=== PATIENT | female | born 1995 | race Caucasian/White ===

== ENCOUNTER 2022-01-11 21:01 | Emergency (ER) | payer MEDICAID, SELFPAY ==
--- NOTE | ~2022-01-11 | US_ITS ---
EXAMINATION: US OBSTETRICAL ULTRASOUND CLINICAL INFORMATION: Cramping. Vaginal spotting. Question miscarriage. COMPARISON: None. LMP: 11/14/2021. Gestational age by maternal dates is 8 weeks 3 days. Estimated date of delivery by maternal dates is 08/21/2022. TECHNIQUE: Ultrasound of the maternal pelvis is performed using transabdominal and transvaginal transducers. Transvaginal imaging is performed due to inadequate visualization transabdominally. M-mode Doppler is also performed. FINDINGS: There is a single intrauterine gestational sac with visible yolk sac and possible pole. There is no cardiac activity identified. Small subchorionic hematoma measures 0.3 cm.. CRL (crown rump length): 0.18 cm (5 weeks 3 days +/- 4 days). SYDNEY (estimated date of delivery): 09/11/2022 +/- 4 days. MATERNAL ADNEXA: The right maternal ovary measures 2.7 x 1.3 x 1.2 cm. The left maternal ovary measures 3 x 1.9 x 1.8 cm. 1.2 cm corpus luteum There is no significant maternal adnexal mass. No maternal pelvic ascites. US/US pelvic ovarian doppler IMPRESSION: Intrauterine gestational sac with a pole. There is no heart rate detected, though it is possible that this is secondary to early stage of . Gestational age by ultrasound is 5 weeks 3 days. That said, this does not match expected dates by last menstrual period. Close follow-up recommended as demise is a possibility.
--- NOTE | ~2022-01-11 | US_ITS ---
EXAMINATION: US OBSTETRICAL ULTRASOUND CLINICAL INFORMATION: Cramping. Vaginal spotting. Question miscarriage. COMPARISON: None. LMP: 11/14/2021. Gestational age by maternal dates is 8 weeks 3 days. Estimated date of delivery by maternal dates is 08/21/2022. TECHNIQUE: Ultrasound of the maternal pelvis is performed using transabdominal and transvaginal transducers. Transvaginal imaging is performed due to inadequate visualization transabdominally. M-mode Doppler is also performed. FINDINGS: There is a single intrauterine gestational sac with visible yolk sac and possible pole. There is no cardiac activity identified. Small subchorionic hematoma measures 0.3 cm.. CRL (crown rump length): 0.18 cm (5 weeks 3 days +/- 4 days). SYDNEY (estimated date of delivery): 09/11/2022 +/- 4 days. MATERNAL ADNEXA: The right maternal ovary measures 2.7 x 1.3 x 1.2 cm. The left maternal ovary measures 3 x 1.9 x 1.8 cm. 1.2 cm corpus luteum There is no significant maternal adnexal mass. No maternal pelvic ascites. US/US OB pelvic and transvaginal IMPRESSION: Intrauterine gestational sac with a pole. There is no heart rate detected, though it is possible that this is secondary to early stage of . Gestational age by ultrasound is 5 weeks 3 days. That said, this does not match expected dates by last menstrual period. Close follow-up recommended as demise is a possibility.
[2022-01-11 21:07] VITALS: BP 141/85; PULSE 83; RESP 16; TEMP 36.6; O2SAT 99; BMI 26.4
[2022-01-11 21:24] LABS: MANUAL DIFF FLAG NO
[2022-01-11 21:27] LABS: Basophils Percent Auto 0.4 % (0-2); Eosinophils Absolute Auto 0.2 X10*3/uL (0.0-0.4); Eosinophils Percent Auto 2.4 % (0-4); Hematocrit 37.2 % (37.0-47.0); Hemoglobin 12.3 g/dl (12.0-16.0); Imm Gran Abs Auto 0.02 X10*3/uL (0.00-0.03); Imm Gran Pct Auto 0.2 % (0.0-0.4); Lymphocytes Absolute Auto 2.1 X10*3/uL (1.2-4.9); Lymphocytes Percent Auto 25.3 % (20-40); Mean Corpuscular HGB Conc 33.1 g/dl (31.0-35.0); Mean Corpuscular Hemoglobin 28.9 pg (27.0-33.0); Mean Corpuscular Volume 87.3 fL (80.0-98.0); Mean Platelet Volume 8.4 fL (9.4-12.3); Monocytes Absolute Auto 0.6 X10*3/uL (0.1-1.2); Monocytes Percent Auto 7.5 % (2-11); Neutrophils Absolute Auto 5.4 x10*3/uL (2.0-8.3); Neutrophils Percent Auto 64.2 % (45-73); Platelet Count 267 X10*3/uL (160-400); Red Blood Count 4.26 X10*6/uL (4.20-5.50); Red Cell Distribution Width 13.7 % (11.0-16.0); White Blood Count 8.5 X10*3/uL (4.8-10.8)
[2022-01-11 21:43] LABS: Alanine Aminotransferase 11 U/L (0-31); Albumin Level 4.3 g/dL (3.5-5.0); Alkaline Phosphatase 61 U/L (39-117); Anion Gap 15 (12-20); Aspartate Amino Transferase 16 U/L (5-31); Bilirubin Total 1.1 mg/dL (0.0-1.0); Blood Urea Nitrogen 14 mg/dL (9-16); Calcium 9.2 mg/dL (8.4-10.2); Carbon Dioxide 20 mmol/L (22-29); Chloride 106 mmol/L (96-108); Creatinine Clr Calc Pharmacy 98.3; Estimated Glomerular Filt Rate > 60; Glucose Fasting 91 mg/dL (60-99); Potassium 3.6 mmol/L (3.3-5.1); Sodium 137 mmol/L (135-145); Total Protein 7.3 g/dL (6.5-8.0)
[2022-01-11 21:49] LABS: HCG Quantitative 9890 mIU/mL
[2022-01-11 22:51] VITALS: BP 123/79; PULSE 78; RESP 24; TEMP 36.8; O2SAT 98
--- NOTE | 2022-01-11 23:01 | ED_ITS ---
HPI - General Adult General Chief complaint: Abdominal Pain Stated complaint: ? having a miscarraige Time Seen by Provider: 01/11/22 22:16 Source: patient Mode of arrival: ambulatory Limitations: no limitations History of Present Illness HPI narrative: 26 year old female A1 presents to the ED w/ bilateral abd pain/ pelvic pain X 2 weeks worsening w/ vaginal bleeding that has been worsening over the past few days. Patient reports 2 weeks ago she passed large clots in the toilet and then this past friday ( 3 days ago) she went to her OBGYN due to spotting, they told her she is likely having an incomplete . They advised her to go to ED at that time, however choose not to, they started her on atbx Flagyl for BV, she tells me she decided to come in today because her vaginal spotting has now turned into vaginal bleeding she has a hard time telling me how many pads she is going through however she does explain she is not soaking through pads she is to straining them frequently. She is describing a lower abdominal pain bilaterally and cramping, reports it is worse on the right. She denies any chances of STDs. Denies fevers, chills, chest pain, shortness of breath, nausea, vomiting, weakness, near syncope, vision changes, dizziness, headache. LMP 11/15/2021 Related Data Allergies Allergy/AdvReac Type Severity Reaction Status Date / Time amoxicillin [AMOXICILLIN] Allergy Intermediate FEVER Unverified 11/04/19 19:36 Review of Systems Review of Systems: Constitutional : No Weight loss, No Fever, No Chills, No Fatigue, No Malaise ENT/Mouth : No sore throat, No Rhinorrhea Eyes: No Eye Pain, No Swelling, No Redness Cardiovascular : No Chest Pain, No SOB, No Dyspnea on Exertion, No Orthopnea, No Edema, No Palpitations Respiratory : No Cough, No Sputum, No Wheezing Gastrointestinal : No Nausea, No Vomiting, No Diarrhea, No Constipation, + abdominal Pain, No Hematochezia, No Melena Genitourinary : No Dysuria, No Urinary Frequency, No Hematuria, + vaginal bleeding Musculoskeletal : No joint pain, No Myalgias, No Joint Swelling Skin : No Skin Lesions, No rash Neuro : No Weakness, No Numbness, No Dizziness, No Headache Psych : No Anxiety/Panic, No Depression All other systems reviewed and are negative Yes all other systems are reviewed and are negative [facility] Past Medical History Attestation statement: The following information was validated with the patient. Source: old records reviewed and nursing notes reviewed Social History Social History Advance Directives: No Advance Directives Information Provided: No Physical Exam ED Vital Signs: Vital Signs - 24 hr 01/11/22 21:07 01/11/22 22:51 01/12/22 02:07 Temperature 97.8 F 98.2 F Pulse Rate 83 78 90 Respiratory Rate 16 24 H 18 Blood Pressure 141/85 H 123/79 105/74 Pulse Oximetry 99 98 97 Oxygen Delivery Method Room Air Room Air Room Air BMI result Body Mass Index 26.4 vss Appearance: Alert.? Oriented X3.? No acute distress.? Head: Normocephalic, atraumatic, no step-offs or deformities Eyes: Pupils equal, round and reactive to light.? CVS: Normal heart rate and rhythm.? Pulses normal.? Respiratory: No respiratory distress.? Breath sounds normal.? Abdomen: Soft and nontender.? Skin: Skin warm and dry.? Normal skin color.? Normal skin turgor.? Extremities: No lower extremity edema.? No calf ttp. 5/5 strength to bilateral upper and lower extremities Sensative exam: closed cervical os, mild discomfort to bilateral adnexa. Dark red blood in vaginal canal. Patient w/ discomfort on speculum exam. Normal female external genatalia Neuro: Oriented X 3.? No motor deficit.? No sensory deficit. CN 2-12 intact Course Reevaluation(s) Reevaluation #1: CBC within normal limits. Chemistry with no acute electrolyte abnormalities requiring intervention. Coags with no acute findings. HCG at 21:20 9890, repeat at 11:45 12,931. Time: 01:17 Reevaluation #2: Ultrasound showing intrauterine gestational sac with pole however no heart rate. Concerns for possible threatened . Over patient's course in the emergency department she has only changed her pad once, slight drop in H&H. Bleeding slowing down per patient. Spoke to Dr. Kesha MUELLER who recommends patient returning with new or worsening sx, no need for Rhogam at this time as patient is O +. From ends repeat ultrasound within 11 days. Explained all this to patient, educated on worrisome signs and sympto ms and when to return. Advised to follow-up with OBGYN as soon as possible and PCP and return with new or worsening symptoms. Worrisome signs and symptoms outlined on discharge. Comfortable discharge Time: 01:58 Procedures Procedure Narrative Procedure Narrative: 2300 26 year old female presents with lower abdominal pain/pelvic pain x3 days worsening. Also reporting vaginal spotting. PE Plan- Medical Decision Making MDM Narrative Medical decision making narrative: 0000 26 year old female presents w/ vaginal bleeding, lower abd/pelvic painn worsening X3 days. Was recently told by GIS COORDINATOR she was having an incomplete . PE w/ closed cervical os, mild discomfort to bilateral adnexa. Dark red blood in vaginal canal. Patient w/ discomfort on speculum exam. Normal female external genatalia Concerns for threatened . Unlikely ectopic . Possible ruptured ovarian cyst. Patient does not appear toxic. Insert of acute abdomen or appendicitis, cholecystitis or pancreatitis. Plan at this time type and screen, pelvic ultrasound, INR, gonorrhea, chlamydia, Trichomonas, UA, BV. Will obtain ultrasound OB pelvic and transvaginal with ovarian pelvic with Doppler. Medical Records Medical records reviewed: Yes I reviewed the patient's medical records. Lab Data Lab results reviewed: Yes I reviewed the patient's lab results. Result diagrams: 01/12/22 01:48 01/11/22 23:45 Labs: Lab Results 01/11/22 01/11/22 01/11/22 Range/Units 21:20 21:20 23:45 WBC 8.5 (4.8-10.8) X10*3/uL RBC 4.26 (4.20-5.50) X10*6/uL Hgb 12.3 (12.0-16.0) g/dl Hct 37.2 (37.0-47.0) % MCV 87.3 (80.0-98.0) fL MCH 28.9 (27.0-33.0) pg MCHC 33.1 (31.0-35.0) g/dl RDW 13.7 (11.0-16.0) % Plt Count 267 (160-400) X10*3/uL MPV 8.4 L (9.4-12.3) fL Immature Gran % (Auto) 0.2 (0.0-0.4) % Neut % (Auto) 64.2 (45-73) % Lymph % (Auto) 25.3 (20-40) % Drew % (Auto) 7.5 (2-11) % Eos % (Auto) 2.4 (0-4) % Baso % (Auto) 0.4 (0-2) % Lymph # (Auto) 2.1 (1.2-4.9) X10*3/uL Drew # (Auto) 0.6 (0.1-1.2) X10*3/uL Eos # (Auto) 0.2 (0.0-0.4) X10*3/uL Baso # (Auto) 0.0 (0.0-0.2) X10*3/uL Abs Immat Gran (auto) 0.02 (0.00-0.03) X10*3/uL Absolute Neuts (auto) 5.4 (2.0-8.3) x10*3/uL Absolute Nucleated RBC 0.000 (0.0-0.012) X10*3/uL Nucleated RBC % (auto) 0.0 (0.0-0.2) /100WBC PT 13.5 H (10.0-13.1) SEC INR 1.2 H (0.9-1.1) Sodium 137 (135-145) mmol/L Potassium 3.6 (3.3-5.1) mmol/L Chloride 106 (96-108) mmol/L Carbon Dioxide 20 L (22-29) mmol/L Anion Gap 15 (12-20) BUN 14 (9-16) mg/dL Creatinine 0.74 (0.5-1.4) mg/dL Estim Creat Clear Calc 98.3 Estimated GFR > 60 Random Glucose (60-115) mg/dL Fasting Glucose 91 (60-99) mg/dL Calcium 9.2 (8.4-10.2) mg/dL Total Bilirubin 1.1 H (0.0-1.0) mg/dL AST 16 (5-31) U/L ALT 11 (0-31) U/L Alkaline Phosphatase 61 (39-117) U/L Total Protein 7.3 (6.5-8.0) g/dL Albumin 4.3 (3.5-5.0) g/dL Beta HCG, Quant 9890 mIU/mL Urine Color Urine Appearance Urine pH (5.0-9.0) Ur Specific [place] (1.005-1.025) Urine Protein (Neg-Trace) mg/dL Urine Glucose (UA) (Negative) mg/dL Urine Ketones (Negative) mg/dL Urine Blood (Negative) Urine Nitrite (Negative) Ur Leukocyte Esterase (Negative) Blood Type Antibody Screen 01/11/22 01/11/22 01/12/22 Range/Units 23:45 23:45 01:48 WBC (4.8-10.8) X10*3/uL RBC (4.20-5.50) X10*6/uL Hgb (12.0-16.0) g/dl Hct (37.0-47.0) % MCV (80.0-98.0) fL MCH (27.0-33.0) pg MCHC (31.0-35.0) g/dl RDW (11.0-16.0) % Plt Count (160-400) X10*3/uL MPV (9.4-12.3) fL Immature Gran % (Auto) (0.0-0.4) % Neut % (Auto) (45-73) % Lymph % (Auto) (20-40) % Drew % (Auto) (2-11) % Eos % (Auto) (0-4) % Baso % (Auto) (0-2) % Lymph # (Auto) (1.2-4.9) X10*3/uL Drew # (Auto) (0.1-1.2) X10*3/uL Eos # (Auto) (0.0-0.4) X10*3/uL Baso # (Auto) (0.0-0.2) X10*3/uL Abs Immat Gran (auto) (0.00-0.03) X10*3/uL Absolute Neuts (auto) (2.0-8.3) x10*3/uL Absolute Nucleated RBC (0.0-0.012) X10*3/uL Nucleated RBC % (auto) (0.0-0.2) /100WBC PT (10.0-13.1) SEC INR (0.9-1.1) Sodium 138 (135-145) mmol/L Potassium 3.8 (3.3-5.1) mmol/L Chloride 107 (96-108) mmol/L Carbon Dioxide 19 L (22-29) mmol/L Anion Gap 16 (12-20) BUN 12 (9-16) mg/dL Creatinine 0.74 (0.5-1.4) mg/dL Estim Creat Clear Calc 98.3 Estimated GFR > 60 Random Glucose 81 (60-115) mg/dL Fasting Glucose (60-99) mg/dL Calcium 9.2 (8.4-10.2) mg/dL Total Bilirubin 1.2 H (0.0-1.0) mg/dL AST 19 (5-31) U/L ALT 12 (0-31) U/L Alkaline Phosphatase 65 (39-117) U/L Total Protein 8.0 (6.5-8.0) g/dL Albumin 4.6 (3.5-5.0) g/dL Beta HCG, Quant 04778 mIU/mL Urine Color Yellow Urine Appearance Clear Urine pH 6.0 (5.0-9.0) Ur Specific [place] 1.010 (1.005-1.025) Urine Protein Negative (Neg-Trace) mg/dL Urine Glucose (UA) Negative (Negative) mg/dL Urine Ketones 15 (Negative) mg/dL Urine Blood Negative (Negative) Urine Nitrite Negative (Negative) Ur Leukocyte Esterase Negative (Negative) Blood Type O Positive Antibody Screen NEGATIVE 01/12/22 Range/Units 01:48 WBC 7.8 (4.8-10.8) X10*3/uL RBC 4.11 L (4.20-5.50) X10*6/uL Hgb 11.9 L (12.0-16.0) g/dl Hct 36.6 L (37.0-47.0) % MCV 89.1 (80.0-98.0) fL MCH 29.0 (27.0-33.0) pg MCHC 32.5 (31.0-35.0) g/dl RDW 13.6 (11.0-16.0) % Plt Count 260 (160-400) X10*3/uL MPV 8.6 L (9.4-12.3) fL Immature Gran % (Auto) 0.3 (0.0-0.4) % Neut % (Auto) 61.1 (45-73) % Lymph % (Auto) 28.1 (20-40) % Drew % (Auto) 7.9 (2-11) % Eos % (Auto) 2.2 (0-4) % Baso % (Auto) 0.4 (0-2) % Lymph # (Auto) 2.2 (1.2-4.9) X10*3/uL Drew # (Auto) 0.6 (0.1-1.2) X10*3/uL Eos # (Auto) 0.2 (0.0-0.4) X10*3/uL Baso # (Auto) 0.0 (0.0-0.2) X10*3/uL Abs Immat Gran (auto) 0.02 (0.00-0.03) X10*3/uL Absolute Neuts (auto) 4.8 (2.0-8.3) x10*3/uL Absolute Nucleated RBC 0.000 (0.0-0.012) X10*3/uL Nucleated RBC % (auto) 0.0 (0.0-0.2) /100WBC PT (10.0-13.1) SEC INR (0.9-1.1) Sodium (135-145) mmol/L Potassium (3.3-5.1) mmol/L Chloride (96-108) mmol/L Carbon Dioxide (22-29) mmol/L Anion Gap (12-20) BUN (9-16) mg/dL Creatinine (0.5-1.4) mg/dL Estim Creat Clear Calc Estimated GFR Random Glucose (60-115) mg/dL Fasting Glucose (60-99) mg/dL Calcium (8.4-10.2) mg/dL Total Bilirubin (0.0-1.0) mg/dL AST (5-31) U/L ALT (0-31) U/L Alkaline Phosphatase (39-117) U/L Total Protein (6.5-8.0) g/dL Albumin (3.5-5.0) g/dL Beta HCG, Quant mIU/mL Urine Color Urine Appearance Urine pH (5.0-9.0) Ur Specific [place] (1.005-1.025) Urine Protein (Neg-Trace) mg/dL Urine Glucose (UA) (Negative) mg/dL Urine Ketones (Negative) mg/dL Urine Blood (Negative) Urine Nitrite (Negative) Ur Leukocyte Esterase (Negative) Blood Type Antibody Screen Critical Care Time Critical Care Time Critical Care Time: Yes Total Critical Care Time: 35 Attestation: I attest to this time spent taking care of the patient, obtaining history, physical, reviewing labs, imaging, speaking to my attending, speaking to sp ecialist. Discharge Plan Discharge Clinical Impression: , threatened Patient Disposition: Home, Self-Care Instructions: Threatened Miscarriage (ED) Additional Instructions: Take your medications as prescribed. If you were prescribed antibiotics today, it is important that you take your medication to their entirety, do not skip any doses, do not finish them early. Follow-up with your primary care provider this week. Please follow-up with OBGYN as soon as possible preferably on Friday. Return to the emergency department with new or worsening symptoms. Such as fevers, chills, chest pain, shortness of breath, nausea, vomiting, dizziness, headache, vision changes, lethargy, worsening vaginal bleeding, abdominal pain. If bleeding or cramping worsens, or if your bleeding through more than 2 pads per hour you need to come in immediately. Should get a repeat ultrasound within 11 days. In case of emergency call 911 US/US OB pelvic and transvaginal IMPRESSION: Intrauterine gestational sac with a pole. There is no heart rate detected, though it is possible that this is secondary to early stage of . Gestational age by ultrasound is 5 weeks 3 days. That said, this does not match expected dates by last menstrual period. Close follow-up recommended as demise is a possibility. Referrals: Nery Araiza MD [Primary Care Provider] - 2 days Rohit Rebolledo MD [Physician] - 2 days
[2022-01-12 00:07] LABS: INTERNATIONAL NORM RATIO 1.2 (0.9-1.1); Prothrombin Time 13.5 SEC (10.0-13.1)
[2022-01-12 00:13] LABS: Alanine Aminotransferase 12 U/L (0-31); Albumin Level 4.6 g/dL (3.5-5.0); Alkaline Phosphatase 65 U/L (39-117); Anion Gap 16 (12-20); Aspartate Amino Transferase 19 U/L (5-31); Bilirubin Total 1.2 mg/dL (0.0-1.0); Blood Urea Nitrogen 12 mg/dL (9-16); Calcium 9.2 mg/dL (8.4-10.2); Carbon Dioxide 19 mmol/L (22-29); Chloride 107 mmol/L (96-108); Creatinine Clr Calc Pharmacy 98.3; Estimated Glomerular Filt Rate > 60; Glucose Random 81 mg/dL (60-115); Potassium 3.8 mmol/L (3.3-5.1); Sodium 138 mmol/L (135-145)
[2022-01-12 00:19] LABS: HCG Quantitative 12831 mIU/mL
[2022-01-12 02:05] LABS: MANUAL DIFF FLAG NO
[2022-01-12 02:07] VITALS: BP 105/74; PULSE 90; RESP 18; O2SAT 97
[2022-01-12 02:13] LABS: Appearance Urine Clear; Basophils Percent Auto 0.4 % (0-2); Color Urine Yellow; Eosinophils Absolute Auto 0.2 X10*3/uL (0.0-0.4); Eosinophils Percent Auto 2.2 % (0-4); Glucose Urine UA Negative (Negative); Hematocrit 36.6 % (37.0-47.0); Hemoglobin 11.9 g/dl (12.0-16.0); Imm Gran Abs Auto 0.02 X10*3/uL (0.00-0.03); Imm Gran Pct Auto 0.3 % (0.0-0.4); Leukocyte Esterase Urine Negative (Negative); Lymphocytes Absolute Auto 2.2 X10*3/uL (1.2-4.9); Lymphocytes Percent Auto 28.1 % (20-40); Mean Corpuscular HGB Conc 32.5 g/dl (31.0-35.0); Mean Corpuscular Volume 89.1 fL (80.0-98.0); Mean Platelet Volume 8.6 fL (9.4-12.3); Monocytes Absolute Auto 0.6 X10*3/uL (0.1-1.2); Monocytes Percent Auto 7.9 % (2-11); Neutrophils Absolute Auto 4.8 x10*3/uL (2.0-8.3); Neutrophils Percent Auto 61.1 % (45-73); Nitrite Urine Negative (Negative); Platelet Count 260 X10*3/uL (160-400); Red Blood Count 4.11 X10*6/uL (4.20-5.50); Red Cell Distribution Width 13.6 % (11.0-16.0); Urine Blood Negative (Negative); Urine Ketones 15 mg/dL (Negative); Urine Protein Negative (Neg-Trace); White Blood Count 7.8 X10*3/uL (4.8-10.8)
--- NOTE | 2022-01-12 02:31 | PM.GYNCN ---
HUSBANDRY TECHNICIAN - CN: HPI Data of Consult Consult date: 01/12/22 Primary Care Provider: Nery Araiza MD Consult Narrative Narrative: I was consulted on Ronna Lemon who is a 26 year old female 26 year old presenting to the ED with 2 week history of spotting and pelvic pain, which has gotten worse over the last few days. No other complaints. LMP 11/15/2021 making her by todate at 8 weeks and 2 days gestation. Rh positive. The patient changed 1 pad during 3.5 hours stay in the emergency room cc:: CC: OB [facility] Social History Social History Advance Directives: No Advance Directives Information Provided: No Meds Allergies Allergy/AdvReac Type Severity Reaction Status Date / Time amoxicillin [AMOXICILLIN] Allergy Intermediate FEVER Unverified 11/04/19 19:36 HUSBANDRY TECHNICIAN Physical Exam Vitals Vital signs: Temp Pulse Resp BP Pulse Ox O2 Del Method 98.2 F 90 18 105/74 97 01/11/22 22:51 01/12/22 02:07 01/12/22 02:07 01/12/22 02:07 01/12/22 02:07 01/12/22 02:07 BMI result Body Mass Index 26.4 Additional Comments: Physical exam reported by RON Good as the following: Abdominal exam is soft nontender Pelvic exam : closed cervical os, Dark red blood in vaginal canal. No active bleeding HUSBANDRY TECHNICIAN - Results Labs CBC & Chem 7: 01/12/22 01:48 01/11/22 23:45 Labs: Short CBC 01/11/22 01/12/22 Range/Units 21:20 01:48 WBC 8.5 7.8 (4.8-10.8) X10*3/uL Hgb 12.3 11.9 L (12.0-16.0) g/dl Hct 37.2 36.6 L (37.0-47.0) % Plt Count 267 260 (160-400) X10*3/uL BMP 01/11/22 01/11/22 21:20 23:45 Sodium 137 138 Potassium 3.6 3.8 Chloride 106 107 Carbon Dioxide 20 L 19 L BUN 14 12 Creatinine 0.74 0.74 Calcium 9.2 9.2 Liver Function 01/11/22 01/11/22 Range/Units 21:20 23:45 Total Bilirubin 1.1 H 1.2 H (0.0-1.0) mg/dL AST 16 19 (5-31) U/L ALT 11 12 (0-31) U/L Alkaline Phosphatase 61 65 (39-117) U/L Albumin 4.3 4.6 (3.5-5.0) g/dL Urine 01/12/22 Range/Units 01:48 Urine Color Yellow Urine Appearance Clear Urine pH 6.0 (5.0-9.0) Ur Specific [place] 1.010 (1.005-1.025) Urine Protein Negative (Neg-Trace) mg/dL Urine Glucose (UA) Negative (Negative) mg/dL Antibody Screen Antibody Screen NEGATIVE 01/11/22 23:45 Imaging US - abdomen: Radiologist's impression: ITS Impressions Doppler Study Ultrasound 01/12/22 01:45 IMPRESSION: Intrauterine gestational sac with a pole. There is no heart rate detected, though it is possible that this is secondary to early stage of . Gestational age by ultrasound is 5 weeks 3 days. That said, this does not match expected dates by last menstrual period. Close follow-up recommended as demise is a possibility. Pelvic/Transvag US 01/12/22 01:45 IMPRESSION: Intrauterine gestational sac with a pole. There is no heart rate detected, though it is possible that this is secondary to early stage of . Gestational age by ultrasound is 5 weeks 3 days. That said, this does not match expected dates by last menstrual period. Close follow-up recommended as demise is a possibility. Assessment and Plan (1) First trimester bleeding: Status: Acute Plan Recommended to RON Good the followin: GC/CT, BV panel Trichomonas to be collected Discussed the ultrasonographic criteria for missed , CRL of at least 7 mm with no heart rate, given her CRL of 18 mm with intrauterine gestational sac and yolk pole, there is a high likelihood of diagnosis of missed A/B, MSD was not reported on ultrasound report. Since the patient's bleeding is not heavy, there is no evidence of active bleeding on pelvic exam, and the patient changed 1 pad in 3.5+ hours in the emergency room, SAB warnings to be given to the patient, she is to come back to the emergency in case of persistence and /or worsening of vaginal bleeding/pelvic cramping Follow-up with her OBGYN in 48 hours. I spent a total of 20 minutes reviewing the chart, communicating to the emergency room provider and documenting in the medical record. This note was generated with a voice recognition program. Some errors may have been overlooked during the review of this note. Sometimes these errors may affect the content or meaning of a given sentence.
[2022-01-12 02:46] LABS: CT PCR NOT DETECTED (Not Detect.); NG PCR NOT DETECTED (Not Detect.)
[2022-01-12 11:20] LABS: BV Int Neg Control Negative (Negative); BV Int Pos Control Positive (Positive)
== END 2022-01-12 03:03 | disposition home or self-care (01) ==
PROVIDERS: Physician Assistant; Emergency Provider Internal Medicine; PCP Internal Medicine
DX: O20.9 Hemorrhage in early pregnancy, unspecified (principal); Z3A.01 Less than 8 weeks gestation of pregnancy
CPT/HCPCS: 36415; 76801; 76817; 80053; 81003; 84702; 85025; 85610; 86850; 86900; 86901; 87480; 87491; 87510; 87591; 87660; 93975; 99283; 99284

== ENCOUNTER 2023-05-20 15:23 | Emergency (ER) | payer MEDICAID, SELFPAY ==
--- NOTE | ~2023-05-20 | XR_ITS ---
EXAMINATION: XR LUMBOSACRAL SPINE CLINICAL INFORMATION: Lower back pain. COMPARISON: None available. TECHNIQUE: Three views of the lumbosacral spine. FINDINGS: Leftward curvature of the lumbar spine with apex at L3. No evidence of acute compression deformity or subluxation. Intervertebral disc heights are maintained. Age indeterminate defect in the right transverse process at the level of L1. Symmetric SI joints. No significant paraspinal soft tissue abnormality. XR/XR lumbar spine 2-3V IMPRESSION: 1. No acute compression deformity or subluxation. 2. Age indeterminate lucency in the right transverse process at the level of L1 that could be congenital or potentially artifactual secondary to overlying bowel gas. However, an underlying fracture cannot be excluded. Recommend correlation with point tenderness and if indicated further characterization with CT without IV contrast.
--- NOTE | 2023-05-20 16:07 | ED_ITS ---
HPI - Back Pain/Injury General Chief Complaint: Back Pain/Injury Stated Complaint: lwr back pain/hx scoliosis/gave 5mo ago Time Seen by Provider: 05/20/23 16:29 Source: patient and RN notes reviewed Mode of arrival: ambulatory Limitations: no limitations History of Present Illness HPI Narrative: This is a 27-year-old female who presents to the emergency department for evaluation of chronic back pain. Patient states that she has a history of scoliosis however reports over the last 5 months she has had worsening back pain ever since having her epidural. She states that during her epidural there is multiple complications, stating that they are unable to find the right space and after multiple attempts she was no longer able to get the epidural. She states that she is having severe mid back pain. She denies any fevers, chills, chest pain, shortness breast, abdominal pain, nausea, vomiting or diarrhea. No urinary retention or incontinence. No saddle anesthesia. Denies any lower extremity weakness. Denies any urinary symptoms, no urinary frequency, urgency, hematuria. She describes her back pain is sharp in nature and occasionally radiates down her back. Denies any other complaints or concerns at this time. MD elicited complaint: back pain Pertinent past history: prior back pain Onset (ago): month(s) Timing: progressively worsening Severity: moderate Similar Symptoms Previously: Yes Quality: sharp and stabbing Location: lumbar spine Radiation: none Exacerbating factors: none Relieving factors: none Associated symptoms: denies other symptoms Related Data Previous Rx's Medication Instructions Recorded acetaminophen 500 mg tablet 500 mg PO Q6H PRN pain #30 tabs 05/20/23 (Tylenol Extra Strength) ibuprofen 600 mg tablet 600 mg PO Q6H PRN pain #30 tabs 05/20/23 Allergies Allergy/AdvReac Type Severity Reaction Status Date / Time amoxicillin [AMOXICILLIN] Allergy Intermediate FEVER Verified 05/20/23 16:11 Review of Systems Review of Systems: Yes all other systems are reviewed and are negative Constitutional: Constitutional: Reports as per [facility] Past Medical History Attestation statement: The following information was validated with the patient. Social History Social History Advance Directives: No Advance Directives Information Provided: No Physical Exam Vital Signs: Vital Signs: Last Vital Signs Temp 98.6 F 05/20/23 18:44 Pulse 73 05/20/23 18:44 Resp 16 05/20/23 18:44 BP 149/105 H 05/20/23 16:08 Pulse Ox 97 05/20/23 18:44 O2 Del Method Room Air 05/20/23 18:44 BMI result Body Mass Index 28.5 Const: General: cooperative, comfortable and no acute distress Orientation/consciousness: patient oriented x3 Limitations: no limitations HEENT: Head: Yes normal to inspection, Yes normocephalic and Yes atraumatic Ears: hearing grossly normal bilaterally General nose exam: Normal external nose present Face and sinus: Yes normal facial exam Mouth: Normal oral and palatal mucosa present, oropharynx normal and moist mucous membranes Throat: Yes posterior oropharynx normal Eyes: General: appearance normal, both eyes and all related structures Eyelids: Yes eyelids normal Conjunctivae: conjunctivae normal Sclerae: sclerae normal Pupils: Equal, round and reactive pupils present EOM: EOMs intact bilaterally Neck: Neck: Yes normal visual inspection, Yes full ROM and Yes no lymphadenopathy Lymphatic: no lymphadenopathy noted Chest: Chest palpation & inspection: normal inspection of the chest Resp: Effort & Inspection: normal respiratory effort and able to speak in complete sentences Auscultation: clear to auscultation bilaterally, no crackles, no rales, no rhonchi and no wheezes Cardio: Rate: regular rate Rhythm: regular rhythm Heart sounds: S1 normal heart sound present and S2 normal heart sound present GI: Inspection: Yes normal to inspection Back/Spine/Pelvis: Other: Exquisite tenderness to the lumbar spine specifically at L1, no overlying erythema, edema, warmth, worsening pain with flexion and extension. No CVA tenderness. Strength 5/5 in lower extremities. Distal sensation circulation intact. Skin: General skin exam: no rashes or lesions noted Trauma: no lacerations or abrasions Wounds: no wounds Neuro: General: patient oriented x3 and moves all extremities Cranial nerves: Yes Equal, round and reactive pupils present Extrem: General: Yes normal to inspection Right upper extremity: normal to inspection Left upper extremity: normal to inspection Right lower extremity: normal to inspection Left lower extremity: normal to inspection Course Course Course Narrative: This is a Rapid Medical Examination (RME) in triage, full HPI, ROS, assessment and plan per primary provider in the Main ED. Ronna is a 27 year old female with history of scoliosis presenting today for evaluation of worsening back pain for 1 month. Pain is now unbearable and progressively worse over the past week. Has been waking up in the middle of the night crying due to the pain. Reports that she feels a hard spot in her back that is painful to touch, states it is where her scoliosis is most prominent. Has been taking tylenol as needed. Sharp pain starts in mid back and travels down to lower back. No following for scoliosis. Gave 5 months ago and was diagnosed with preeclampsia. Reports that they messed up the epidural 3 times , didn't realize the scoliosis was that bad . Reports that she hasn't had the pain since having a brace 14 years ago. Medical Decision Making Medical Decision Making MDM Narrative: This is a 27-year-old female presenting to the emergency department with complaints of ongoing chronic back pain. She has a history of scoliosis however states that since her epidural she had 5 months ago her back pain has worsened. . Differential diagnoses includes lumbago versus musculoskeletal spasm / strain versus sciatica. No back pain red flags on history or physical. Presentation not consistent with malignancy (lack of history of malignancy, lack of B symptoms), fracture (no trauma, no bony tenderness to palpation), cauda equina (no bowel or urinary incontinence/retention, no saddle anesthesia, no distal weakness), pyelonephritis (afebrile, no CVAT, no urinary symptoms). Given worsening back pain after epidural, ordered lumbar x-ray. Lumbar x-ray revealed lucency at L1. This is precisely where she is having her pain therefore unclear significance of this however advised patient to follow-up with neurosurgery as well as primary care physician to have MRI or any additional testing performed. She has no neurologic deficits therefore stat MRI is not warranted at this time. Patient given strict return precautions. She understands agrees with plan. Patient stable for discharge. Differential Diagnosis Differential Diagnoses: The differential diagnosis associated with the presentation includes Fracture, sciatica, scoliosis, acute on chronic back pain, see above for other details. Radiology Impression Discussion of test interpretation with radiology: I have reviewed the radiologist's reading. Radiologist Impression: XR/XR lumbar spine 2-3V IMPRESSION: 1. No acute compression deformity or subluxation. 2. Age indeterminate lucency in the right transverse process at the level of L1 that could be congenital or potentially artifactual secondary to overlying bowel gas. However, an underlying fracture cannot be excluded. Recommend correlation with point tenderness and if indicated further characterization with CT without IV contrast. Dictated By: Mayte Martinez External Record Review External record reviewed: Inpatient record, Office record, Outpatient record, Prior outpatient labs, Prior outpatient radiology, Primary care record and Outside ED record Discharge Plan Discharge Clinical Impression: Back pain Patient Disposition: Home, Self-Care Instructions: Acute Low Back Pain (ED), Back Pain (ED) Additional Instructions: You were seen in the emergency department due to back pain. Your x-ray is concerning for a possible L1 abnormality. You need to follow-up with your primary care physician. I am also giving your referral to our contract administration specialist. Please call tomorrow to make an appointment. Alternate between ibuprofen and Tylenol. If any new or worsening symptoms occur, including but not limited to numbness, tingling, weakness in her lower legs, urinary or bowel incontinence, please return for re-evaluation. Prescriptions: New ibuprofen 600 mg tablet 600 mg PO Q6H PRN (Reason: pain) Qty: 30 0RF acetaminophen [Tylenol Extra Strength] 500 mg tablet 500 mg PO Q6H PRN (Reason: pain) Qty: 30 0RF Referrals: Singh Renteria MD, PhD [Physician] - Discharge Date/Time: 05/20/23 18:45
[2023-05-20 16:08] VITALS: BP 149/105; PULSE 85; RESP 20; TEMP 37.4; O2SAT 100; BMI 28.5
[2023-05-20 18:44] VITALS: PULSE 73; RESP 16; TEMP 37; O2SAT 97
== END 2023-05-20 18:45 | disposition home or self-care (01) ==
PROVIDERS: Emergency Provider Emergency Medicine; PCP Internal Medicine
DX: M54.9 Dorsalgia, unspecified (principal); M41.9 Scoliosis, unspecified; Z88.0 Allergy status to penicillin
CPT/HCPCS: 72100; 99282; 99283

== ENCOUNTER 2023-05-30 14:18 | Outpatient (AMB) | payer MEDICAID, SELFPAY ==
--- NOTE | 2023-05-30 14:21 | A.SPINEOV_ITS ---
Intake Intake Visit Reasons: scoliosis Intake Note: Ms. 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 She has a pleasant 27-year-old female comes in today with a chief complaint of low back pain with radiation down toward her waistline. She reports a longstanding history of childhood scoliosis, which was somewhat corrected with bracing via [facility]. 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 Per her report, they attempted to place an epidural and failed multiple times. Ever since they attempted the epidural, she has had severe low back pain. And more recently the pain has got to the point where she has been in 9/10 pain throughout the day, and sought care in our emergency department. After ev aluation in the ED she was sent to our clinic for a follow-up. She has been taking Tylenol/ibuprofen in order to mitigate her pain symptoms, but has not been doing much else. She has been to physical therapy in the past during her due to some exacerbation of her back pains during the initial course of . PMH: Antiphospholipid blood clotting disorder. Not on any anticoagulation. Social hx: Patient does not smoke, reports no substance use. Medications: Tylenol, ibuprofen. Allergies: NKDA. Physical exam: The patient has 5/5 strength in her upper and lower extremities. She has no sensational deficits. Her reflexes are 2+ intact. She is able to ambulate well and rises from a seated position without difficulty. She elicits pain to direct palpation of the L1 region of her lumbar spine. She denies significant pain to direct palpation above or below this area. There is a notable levocoliosis in the lumbar spine, and dextroscoliosis in the thoracic spine. (-) Crowe's, (-) clonus. Imaging review: X-ray imaging shows levoscoliosis of the lumbar spine with the apex at L3. Disc height appears well maintained, however x-rays are over projected. 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 She identifies inciting incident of an attempted epidural placement during her delivery. She has been in essentially constant pain since then which has recently worsened. There has been some discussion of a potential fracture at the L1 level after both evaluation in the emergency department and radiological review of x-rays. The patient does present with pain to direct palpation of the vertebral body near this level, and therefore I will be sending her for a CT scan of the lumbar spine to definitively evaluate for a fracture in the lumbar spine. If the CT scan does not show a fracture, then I will be ordering her an MRI to evaluate for any potential nerve root impingement which may have occured as a result of her epidural placement. Thank you for allowing us to care for your patient. The total time spent with this visit with this patient was 45 minutes reviewing history, physical exam, MRI imaging review, and implementation of treatment plan or further diagnostic testing Mateo Renteria MD,PhD [facility] Orders: Orders CT lumbar spine wo IV con Today M54.50 - Low back pain, unspecified Coding Level of Care Code New Pt Level 4 (89659) Diagnoses Lumbago M54.50
== END 2023-05-30 15:10 | disposition home or self-care (01) ==
PROVIDERS: PCP Internal Medicine; Visit Provider Physician Assistant
DX: M54.50 Low back pain, unspecified (principal)
CPT/HCPCS: 99204

== ENCOUNTER → 2023-05-30 14:18 | Outpatient (BNVA) | payer MEDICAID, SELFPAY | PROVIDERS: PCP Internal Medicine; Visit Provider Physician Assistant | DX: M54.50 Low back pain, unspecified (principal) | CPT/HCPCS: 99202 ==

== ENCOUNTER 2023-07-03 07:48 | Outpatient (REF) | payer MEDICAID, SELFPAY ==
--- NOTE | ~2023-07-03 | CT_ITS ---
EXAMINATION: CT LUMBAR SPINE WITHOUT CONTRAST CLINICAL INFORMATION: Low back pain, special instructions to evaluate for possible L1 fracture COMPARISON: 05/20/2023 lumbar spine radiograph TECHNIQUE: Continuous helical imaging obtained through the lumbar spine without IV contrast. Reconstructed images performed in coronal and sagittal planes. This CT examination was performed using dose optimization techniques as appropriate, variously including the following: *Automated exposure control *Adjustment of mA and/or kV according to patient size (this includes techniques or standardized protocols for targeted exams where dose is matched to indication/reason for exam; i.e. extremities or head) *Use of iterative reconstruction technique DLP; 473 mGy-cm FINDINGS: S-shaped thoracolumbar scoliosis. No fracture, dislocation or traumatic subluxation. Well-corticated nonunited bilateral transverse processes of L1 account for recent radiographic findings. No acute fracture. Vertebral body heights are maintained. No spinal canal or neural foraminal narrowings. Visualized lungs, intra-abdominal pelvic contents and soft tissues are unremarkable. CT/CT lumbar spine wo IV con IMPRESSION: No acute bony pathology.
== END 2023-07-03 07:49 | disposition home or self-care (01) ==
LOC: HO.CT 07:48
PROVIDERS: PCP Family Medicine; Visit Provider Physician Assistant
DX: M54.50 Low back pain, unspecified (principal)
CPT/HCPCS: 72132

== ENCOUNTER 2023-08-25 09:59 | Outpatient (AMB) | payer MEDICAID, SELFPAY ==
--- NOTE | 2023-08-25 10:07 | HO.SPINEOV ---
Intake Visit Reasons: MRI f/u- pt will bring report and disc ([facility]) Intake Note: Ms. Rafy Lemon is here for MRI F/u. Head Greenskeeper Required: No Allergies amoxicillin [AMOXICILLIN] Allergy (Intermediate, Verified 08/25/23 10:08) FEVER Assessment & Plan Assessment & Plan (1) Lumbago: Code(s): M54.50 - Low back pain, unspecified Category: Medical Plan Ronna is a pleasant 28-year-old female comes in today for a follow-up visit after being sent for a lumbar MRI secondary to a negative CT scan that showed evidence of fracture. She continues to report back pain in the L1-L4 area. It is fairly well localized to this area and does not radiate or shoot in any particular direction. She states that the pain is still consistent since we last spoke. We reviewed her MRI imaging which shows no evidence of acute central canal or foraminal stenosis throughout the lumbar spine. On the localizer view I can again visualize the childhood scoliosis discussed in the previous office visit note. No significant abnormalities, appears stable. 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 I encouraged her to follow up with the OBGYN, as this could represent a source of referred pain for the patient. Ronna is still very mobile, completing all of her ADLs, and is generally speaking an active young woman. I do not believe that Ronna is a good candidate for any neurosurgical interventions at this time. She was encouraged to continue pursuing conservative management, OTCs, and to follow up with her OBGYN regarding the adnexal mass. She was appreciative that we were able to rule out any acute neurological deficit that may have been present secondary to her epidural placement. She understands and agrees with the plan as previously outlined. Mateo Renteria MD,PhD [facility] Coding Level of Care Code Est Pt Level 3 (92321) Diagnoses Lumbago M54.50
== END 2023-08-25 11:13 | disposition home or self-care (01) ==
PROVIDERS: PCP Family Medicine; Visit Provider Physician Assistant
DX: M54.50 Low back pain, unspecified (principal)
CPT/HCPCS: 99213

== ENCOUNTER → 2023-08-25 09:59 | Outpatient (BNVA) | payer MEDICAID, SELFPAY | PROVIDERS: PCP Family Medicine; Visit Provider Physician Assistant | DX: M54.50 Low back pain, unspecified (principal) | CPT/HCPCS: 99212 ==

== ENCOUNTER 2024-06-27 17:29 | Emergency (ER) | payer MEDICAID, SELFPAY ==
--- NOTE | ~2024-06-27 | CT_ITS ---
CLINICAL HISTORY: trauma CT thoracic spine without contrast Comparison: None Findings: Scoliosis. No acute fractures or dislocations. Normal visualized lungs and mediastinum. Upper abdominal contents unremarkable. IMPRESSION: 1. No acute osseous injury. This document has been electronically signed by: Taj Campos MD on 06/27/2024 23:01:14
--- NOTE | ~2024-06-27 | CT_ITS ---
CLINICAL HISTORY: trauma CT lumbar spine without contrast Comparison: CT/SR - CT LUMBAR SPINE WO IV CON - 07/03/23 08:11 EDT Findings: Vertebral alignment is within normal limits. No acute fractures or dislocations. Visualized abdominal contents unremarkable. IMPRESSION: No acute findings. This document has been electronically signed by: Taj Campos MD on 06/27/2024 23:01:10
[2024-06-27 17:33] VITALS: BP 150/84; PULSE 83; RESP 19; TEMP 36.6; O2SAT 98; BMI 33.7
--- NOTE | 2024-06-27 17:33 | ED.GENADULT ---
HPI - General Adult General Chief complaint: Back Pain/Injury Stated complaint: back pain, right sided numbness Time Seen by Provider: 06/27/24 20:37 Source: patient Limitations: no limitations History of Present Illness ED Provider: Kayleigh Andrade PA-C HPI narrative: 29-year-old female with a history of scoliosis, and chronic back pain, presents with mid to lower back pain. Patient states she felt a ?crack? in her back overnight, she has had severe discomfort since. Patient states she has chronic right lower extremity numbness and tingling at baseline. Patient is still ambulatory. Denies urinary retention, bowel incontinence or weakness of lower extremities. Related Data Previous Rx's ?Medication ?Instructions ?Recorded acetaminophen 500 mg tablet 500 mg PO Q6H PRN pain #30 tabs 05/20/23 (Tylenol Extra Strength) ibuprofen 600 mg tablet 600 mg PO Q6H PRN pain #30 tabs 05/20/23 ketorolac 10 mg tablet 10 mg PO Q6H PRN pain #20 tabs 06/27/24 methocarbamol 750 mg tablet 1,500 mg (2 x 750 mg) PO Q8H PRN 06/27/24 pain, moderate #25 tabs Allergies Allergy/AdvReac Type Severity Reaction Status Date / Time amoxicillin [AMOXICILLIN] Allergy Intermediate FEVER Verified 06/27/24 17:34 Review of Systems Review of Systems: Yes all other systems are reviewed and are negative Constitutional: Constitutional: Denies fatigue and Denies fever(s) Cardiovascular: Cardiovascular: Denies chest pain and Denies dyspnea Respiratory: Respiratory: Denies dyspnea Gastrointestinal: Gastrointestinal: Denies abdominal pain, Denies nausea and Denies vomiting Musculoskeletal: Musculoskeletal: Reports back pain, Denies muscle weakness, Reports numbness, Denies radiating pain into limb and Reports tingling Neurologic: Reports numbness and Reports tingling Endocrine: Endocrine: Denies fatigue PMFSH Past Medical History Attestation statement: The following information was validated with the patient. Social History Social History Smoked in Last 30 Days: No Use of substances other than those prescribed or required for medical reasons: No Advance Directives: No Advance Directives Information Provided: Yes Do you have a plan to hurt others: No Plan Physical Exam ED Vital Signs: Vital Signs - 24 hr 06/27/24 17:33 06/27/24 20:40 Temperature 98 F 98.4 F Pulse Rate 83 76 Respiratory Rate 19 20 Blood Pressure 150/84 H 129/86 Pulse Oximetry 98 94 Oxygen Delivery Method Room Air Room Air BMI result Body Mass Index 33.7 Const Other: Alert well-appearing Orientation/consciousness: patient oriented x3 Resp Effort & Inspection: normal respiratory effort Cardio Other: Normal peripheral perfusion Skin Other: Warm dry no rash Neuro General: patient oriented x3, gait normal, no focal motor deficits and CN's II-XI intact bilaterally Extrem Other: Strength 5/5 bilateral lower extremities with resistance Psych Other: Cooperative Course Course Course Narrative: RME performed by [place] PA-C. Patient is a 29 year old assigned female at presenting to the emergency department with low back pain. Patient states she has an extensive history of low back pain secondary to multiple issues including a herniated disc, scoliosis, and a botched epidural. Patient states that she felt some cracking in her back and has had worsening pain ever since. Detailed physical exam and review of systems are deferred to the community center coordinator. Labs ordered. Patient placed back in the waiting room pending room availability and results. Medications Administered Discontinued Medications Generic Name Dose Route Start Last Admin Trade Name Freq PRN Reason Stop Dose Admin Ketorolac Tromethamine 15 mg 06/27/24 21:20 06/27/24 21:59 Ketorolac Tromethamine 15 Mg/Ml Vial IM 06/27/24 21:21 15 mg ONCE ONE Administration Methocarbamol 1,500 mg 06/27/24 21:20 06/27/24 21:59 Methocarbamol 750 Mg Tablet PO 06/27/24 21:21 1,500 mg ONCE ONE Administration Medical Decision Making Medical Decision Making [facility] Narrative: 29-year-old female with a history of scoliosis, and chronic back pain, presents with mid to lower back pain. Patient states she felt a ?crack? in her back overnight, she has had severe discomfort since. Patient states she has chronic right lower extremity numbness and tingling at baseline. Patient is still ambulatory. Denies urinary retention, bowel incontinence or weakness of lower extremities. Problem: Chronic pain with scoliosis History: Per patient I have considered the following differential diagnoses: Lumbar strain, lumbar radiculopathy, cauda equina, compression fracture Plan: We will be imaging the thoracic and lumbar spine. We will be treating with the anti-inflammatory and muscle relaxant. To note the patient is not having any current, new radicular symptoms, and no red flag signs symptoms concerning for cord compression. I have independently reviewed the following tests: Labs: Not CT lumbar spine: Findings: Vertebral alignment is within normal limits. No acute fractures or dislocations. Visualized abdominal contents unremarkable. IMPRESSION: No acute findings. CT thoracic spine:Findings: Scoliosis. No acute fractures or dislocations. Normal visualized lungs and mediastinum. Upper abdominal contents unremarkable. IMPRESSION: 1. No acute osseous injury. Lab Data 06/27/24 17:48 06/27/24 17:47 Labs: Lab Results 06/27/24 06/27/24 Range/Units 17:47 17:48 WBC 6.5 (4.8-10.8) X10*3/uL RBC 4.74 (4.20-5.50) X10*6/uL Hgb 13.5 (12.0-16.0) g/dl Hct 41.1 (37.0-47.0) % MCV 86.7 (80.0-98.0) fL MCH 28.5 (27.0-33.0) pg MCHC 32.8 (31.0-35.0) g/dl RDW 13.7 (11.0-16.0) % Plt Count 305 (160-400) X10*3/uL MPV 8.4 L (9.4-12.3) fL Immature Gran % (Auto) 0.3 (0.0-0.4) % Neut % (Auto) 62.4 (45-73) % Lymph % (Auto) 25.7 (20-40) % [place] % (Auto) 8.9 (2-11) % Eos % (Auto) 2.1 (0-4) % Baso % (Auto) 0.6 (0-2) % Lymph # (Auto) 1.7 (1.2-4.9) X10*3/uL [place] # (Auto) 0.6 (0.1-1.2) X10*3/uL Eos # (Auto) 0.1 (0.0-0.4) X10*3/uL Baso # (Auto) 0.0 (0.0-0.2) X10*3/uL Abs Immat Gran (auto) 0.02 (0.00-0.03) X10*3/uL Absolute Neuts (auto) 4.1 (2.0-8.3) x10*3/uL Absolute Nucleated RBC 0.000 (0.0-0.012) X10*3/uL Nucleated RBC % (auto) 0.0 (0.0-0.2) /100WBC ESR 13 (0-20) MM/HR Sodium 141 (135-145) mmol/L Potassium 3.9 (3.3-5.1) mmol/L Chloride 112 H (96-108) mmol/L Carbon Dioxide 18 L (22-29) mmol/L Anion Gap 15 (12-20) BUN 19 H (9-16) mg/dL Creatinine 0.84 (0.5-1.4) mg/dL Estim Creat Clear Calc 99.1 Estimated GFR > 60 Random Glucose 94 (60-115) mg/dL Calcium 8.9 (8.4-10.2) mg/dL Total Bilirubin 0.9 (0.0-1.0) mg/dL AST 23 (5-31) U/L ALT 20 (0-31) U/L Alkaline Phosphatase 77 (39-117) U/L C-Reactive Protein 0.37 (< or = 0.50) mg/dL Total Protein 7.5 (6.5-8.0) g/dL Albumin 4.2 (3.5-5.0) g/dL Beta HCG, Quant < 2 mIU/mL Discharge Plan Discharge Clinical Impression: Thoracic back pain, Strain of lumbar region Patient Disposition: Home, Self-Care Instructions: Low Back Strain (ED), Thoracic Pain (ED) Additional Instructions: Imaging of your thoracic and lumbar spine was negative for acute injury. See home care instructions. Use the ketorolac, this is an anti-inflammatory, for your pain, take it with food. Use the methocarbamol for your discomfort as well. This medication will cause drowsiness do not drive or operate machinery while taking the medication. Follow up with your primary care provider as needed. Prescriptions: New methocarbamol 750 mg tablet 1,500 mg PO Q8H PRN (Reason: pain, moderate) Qty: 25 0RF ketorolac 10 mg tablet 10 mg PO Q6H PRN (Reason: pain) Qty: 20 0RF Rx Instructions: maximum total duration of 5 days from all oral, intranasal, or parenteral formulations. The patient received an intramuscular dose of Toradol here in the emergency room. No Action ibuprofen 600 mg tablet 600 mg PO Q6H PRN (Reason: pain) Qty: 30 0RF acetaminophen [Tylenol Extra Strength] 500 mg tablet 500 mg PO Q6H PRN (Reason: pain) Qty: 30 0RF Interventions: ED Discharge Assessment Last Done: 06/27/24 23:26 Discharge Date/Time: 06/27/24 23:27 Print Language: Maltese
[2024-06-27 18:07] LABS: MANUAL DIFF FLAG NO
[2024-06-27 18:11] LABS: Basophils Percent Auto 0.6 % (0-2); Eosinophils Absolute Auto 0.1 X10*3/uL (0.0-0.4); Eosinophils Percent Auto 2.1 % (0-4); Hematocrit 41.1 % (37.0-47.0); Hemoglobin 13.5 g/dl (12.0-16.0); Imm Gran Abs Auto 0.02 X10*3/uL (0.00-0.03); Imm Gran Pct Auto 0.3 % (0.0-0.4); Lymphocytes Absolute Auto 1.7 X10*3/uL (1.2-4.9); Lymphocytes Percent Auto 25.7 % (20-40); Mean Corpuscular HGB Conc 32.8 g/dl (31.0-35.0); Mean Corpuscular Hemoglobin 28.5 pg (27.0-33.0); Mean Corpuscular Volume 86.7 fL (80.0-98.0); Mean Platelet Volume 8.4 fL (9.4-12.3); Monocytes Absolute Auto 0.6 X10*3/uL (0.1-1.2); Monocytes Percent Auto 8.9 % (2-11); Neutrophils Absolute Auto 4.1 x10*3/uL (2.0-8.3); Neutrophils Percent Auto 62.4 % (45-73); Platelet Count 305 X10*3/uL (160-400); Red Blood Count 4.74 X10*6/uL (4.20-5.50); Red Cell Distribution Width 13.7 % (11.0-16.0); White Blood Count 6.5 X10*3/uL (4.8-10.8)
[2024-06-27 18:28] LABS: Alanine Aminotransferase 20 U/L (0-31); Albumin Level 4.2 g/dL (3.5-5.0); Anion Gap 15 (12-20); Aspartate Amino Transferase 23 U/L (5-31); Bilirubin Total 0.9 mg/dL (0.0-1.0); Blood Urea Nitrogen 19 mg/dL (9-16); C Reactive Protein 0.37 mg/dL (< or = 0.50); Calcium 8.9 mg/dL (8.4-10.2); Carbon Dioxide 18 mmol/L (22-29); Chloride 112 mmol/L (96-108); Creatinine Clr Calc Pharmacy 99.1; Estimated Glomerular Filt Rate > 60; Glucose Random 94 mg/dL (60-115); Potassium 3.9 mmol/L (3.3-5.1); Sodium 141 mmol/L (135-145); Total Protein 7.5 g/dL (6.5-8.0)
[2024-06-27 18:37] LABS: Alkaline Phosphatase 77 U/L (39-117)
[2024-06-27 18:46] LABS: Erythrocyte Sedimentation Rate 13 MM/HR (0-20)
[2024-06-27 20:40] VITALS: BP 129/86; PULSE 76; RESP 20; TEMP 36.9; O2SAT 94
[2024-06-27 21:38] LABS: HCG Quantitative < 2 mIU/mL
[2024-06-27] MEDS: Ketorolac Tromethamine 15 MG/ML VIAL IM (21:59)
[2024-06-27] MEDS: methocarbamoL 750 MG TABLET 1500 MG PO (21:59)
--- NOTE | 2024-06-27 22:24 | PC.NURSE ---
pt ambulatory to and from CT scan with a steady gait. medicated per apr. resting comfortably, warm blanket given. pending ct scan results.
[2024-06-27 23:26] VITALS: BP 129/86; PULSE 76; RESP 20; TEMP 36.9; O2SAT 94
== END 2024-06-27 23:27 | disposition home or self-care (01) ==
PROVIDERS: Physician Assistant Medical; Emergency Provider Emergency Medicine Emergency Medical Services; PCP Family Medicine
DX: M54.6 Pain in thoracic spine (principal); M54.50 Low back pain, unspecified; R10.2 Pelvic and perineal pain; Z79.899 Other long term (current) drug therapy
CPT/HCPCS: 36415; 72128; 72131; 80053; 84702; 85025; 85652; 86140; 96372; 99284; J1885

== ENCOUNTER → 2024-06-27 21:20 | Outpatient (BNV) | payer MEDICAID, SELFPAY | PROVIDERS: Emergency Provider Emergency Medicine Emergency Medical Services; PCP Family Medicine; Visit Provider Radiology Diagnostic Radiology | DX: R20.2 Paresthesia of skin (principal); M54.50 Low back pain, unspecified | CPT/HCPCS: 72128; 72131 ==